=== PATIENT | female | born 1990 ===

== ENCOUNTER 2018-06-19 13:21 | Inpatient (IN) | payer OTHER ==
[~2018-06-19] VITALS: Ht 157.5 cm; Wt 2.7 kg
[2018-07-09] MEDS ORDERED: PRENATAL TABLE1 EAC1 PO (11:27)
== END 2018-07-12 10:38 | DRG 788 ==
LOC: OB/GYN 07-09 09:25 → LDR 07-09 09:25 → O/R 07-09 21:50 → OB/GYN 07-09 23:25 → LDR 07-17 13:05
PROVIDERS: Obstetrics & Gynecology
PROC: 3E033VJ Introduction of Other Hormone into Peripheral Vein, Percutaneous Approach (ICD-10-PCS; 2018-07-09)
PROC: 4A033R1 Measurement of Arterial Saturation, Peripheral, Percutaneous Approach (ICD-10-PCS; 2018-07-09)
PROC: 4A1HXCZ Monitoring of Products of Conception, Cardiac Rate, External Approach (ICD-10-PCS; 2018-07-09)
PROC: 10D00Z1 Extraction of Products of Conception, Low, Open Approach (ICD-10-PCS; principal; 2018-07-09 19:00)
DX: O62.0 Primary inadequate contractions (principal); Z3A.39 39 weeks gestation of pregnancy; Z37.0 Single live birth